=== PATIENT | male | born 1955 | race Caucasian/White ===

== ENCOUNTER 2019-10-24 07:16 | Outpatient (CLI) | payer BC, SELFPAY ==
--- NOTE | ~2019-10-24 | XR_ITS ---
XR chest 2V DATE: 10/24/2019 07:48 INDICATION: Cough TECHNIQUE: PA and lateral views COMPARISON: 05/31/2017 two-view chest FINDINGS: Status post C6-C7 anterior surgical fusion. Normal heart size. Aortic arch calcification. No hilar or mediastinal enlargement. No pulmonary infil trate or consolidation, pleural effusion or pulmonary vascular congestion or pneumothorax is detected . IMPRESSION: No active cardiopulmonary disease Aortic atherosclerosis Reviewed, dictated and finalized at location A.
[2019-10-24 07:54] LABS: Hemoglobin A1C 7.1 % (<5.7)
[2019-10-24 08:38] LABS: Creatinine Urine 43.9 mg/dL
[2019-10-24 08:49] LABS: MALB Creatinine Ratio < 13.7 mg/g (0-30); Microalbumin Urine Random < 6.0 mg/L (0-16.7)
[2019-10-24 09:17] LABS: Alanine Aminotransferase 32 U/L (4-50); Albumin Level 4.6 g/dL (3.5-5.1); Alkaline Phosphatase 60 U/L (38-126); Aspartate Amino Transferase 38 U/L (17-59); Blood Urea Nitrogen 20 mg/dL (9-20); Calcium 9.5 mg/dL (8.4-10.2); Carbon Dioxide 26 mmol/L (22-30); Chloride 100 mmol/L (98-107); Cholesterol 163 mg/dL (0-200); Estimated Glomerular Filt Rate > 60; Glucose 130 mg/dL (75-110); HDL Direct 43 mg/dL; Potassium 4.8 mmol/L (3.4-5.0); Sodium 134 mmol/L (137-145); Triglycerides 267 mg/dL (<150)
[2019-10-24 09:20] LABS: LDL Cholesterol Direct 77 mg/dL
[2019-10-24 09:39] LABS: Prostate Specific Antigen 0.6 ng/mL (< OR = 4.0)
== END 2019-10-24 07:17 | disposition home or self-care (01) ==
PROVIDERS: PCP Family Medicine; Visit Provider Family Medicine
DX: E78.5 Hyperlipidemia, unspecified (principal); R05 Cough; I10 Essential (primary) hypertension; E11.9 Type 2 diabetes mellitus without complications; Z12.5 Encounter for screening for malignant neoplasm of prostate; I70.0 Atherosclerosis of aorta
CPT/HCPCS: 36415; 71046; 80053; 80061; 82043; 83036; 84153

== ENCOUNTER 2022-03-01 09:26 | Outpatient (CLI) | payer MEDICARE, SELFPAY ==
--- NOTE | 2022-03-01 09:39 | ECHO_ITS ---
Patient Info Name: Howard Bryson Age: 66 years : 1955 Gender: Male Ht: 69 in Wt: 210 lbs BSA: 2.18 m2 HR: 70 bpm BP: 168 / 98 mmHg Heart Rhythm: Sinus Rhythm Technical Quality: Fair Exam Date: 03/01/2022 10:02 AM Exam Location: [facility] Patient Status: Outpatient Admit Date: 03/01/2022 Staff Ordering Physician: Julianne Daniels Farm Helper: Ana Luisa Milton RDCS Attending Provider: Julianne Daniels Referring Physician: Frances THOMAS; Exam Type: CA echo doppler color flow Study Info Indications I34.1 - Nonrheumatic mitral (valve) prolapse Complete two-dimensional, color flow and Doppler transthoracic echocardiogram is performed. Summary 1. Complete two-dimensional, color flow and Doppler transthoracic echocardiogram is performed. 2. Left ventricular chamber dimension is normal. 3. Left ventricular systolic function is normal, estimated at 60-65%. 4. The left ventricular diastolic function is grade I diastolic dysfunction. 5. E/e' 16 is elevated. 6. There is mild aortic valve sclerosis. 7. There is trace aortic valve regurgitation. 8. There is trace tricuspid valve regurgitation. 9. No pulmonary hypertension, estimated pulmonary arterial systolic pressure is 31 mmHg. 10. There is trace pulmonic regurgitation. Left Ventricle E/e' 16 is elevated. Left ventricular chamber dimension is normal. Left ventricular systolic function is normal, estimated at 60-65%. The left ventricular diastolic function is grade I diastolic dysfunction. Right Ventricle Right ventricular systolic function is normal and with normal TAPSE 1.7 cm. Right ventricular chamber dimension is normal. Left Atria Left atrial chamber dimension is normal. Right Atria Right atrial chamber dimension is normal. Aortic Valve The aortic valve is trileaflet. There is mild aortic valve sclerosis. There is no aortic valve stenosis. There is trace aortic valve regurgitation. Pulmonic Valve There is trace pulmonic regurgitation. Mitral Valve No mitral valve prolapse. There is no mitral valve stenosis. There is no mitral valve regurgitation. Tricuspid Valve There is trace tricuspid valve regurgitation. No pulmonary hypertension, estimated pulmonary arterial systolic pressure is 31 mmHg. Pericardium/Pleural There is no pericardial effusion. Inferior Vena Cava Normal inferior vena cava with >50% collapse upon inspiration consistent with normal right atrial pressure, 5 mmHg. Aorta The aortic root size at the sinus of Valsalva is normal. Left Ventricular Outflow Tract Name Value Normal LVOT 2D LVOT Diameter 2.0 cm LVOT Doppler LVOT Peak Gradient 5 mmHg LVOT Mean Gradient 2 mmHg LVOT VTI 21 cm LVOT VTI/AV VTI Ratio 0.8 LVOT Stroke Volume 63 ml LVOT CO 4.1 l/min LVOT CI 1.9 l/min/m2 Pulmonic Valve
== END 2022-03-01 09:27 | disposition home or self-care (01) ==
LOC: ANHCARD 09:28
PROVIDERS: PCP Family Medicine; Visit Provider Physician Assistant Medical
DX: I34.1 Nonrheumatic mitral (valve) prolapse (principal)
CPT/HCPCS: 93306

== ENCOUNTER 2022-04-20 06:36 | Outpatient (CLI) | payer MEDICARE, SELFPAY ==
--- NOTE | ~2022-04-20 | MR_ITS ---
EXAMINATION: MR shoulder LT wo con DATE: 04/20/2022 07:42 INDICATION: Left shoulder pain and weakness TECHNIQUE: Magnetic resonance imaging (MRI) of the left shoulder was performed without intravenous co ntrast. Sequences included axial PD-weighted FS FSE, coronal oblique PD-weighted FS FSE, coronal obli que T2-weighted FS FSE, sagittal PD-weighted FS FSE, and sagittal T1-weighted SE. COMPARISON: None. FINDINGS: Coracoacromial arch: The acromion undersurface is flat in morphology (type I). The coracoacromial ligament is normal. Mode rate acromioclavicular osteoarthritis. Rotator cuff: Moderate supraspinatus and infraspinatus tendinopathy. There is a full-thickness tear along the great er tuberosity footplate of the supraspinatus and conjoined portion of the supraspinatus and anterior infraspinatus tendons. The tear which measures 1.6 cm AP and 9 mm medial to lateral the anteriormost aspect of the supraspinatus tendon. The tear extends posteriorly as a articular sided tear involving approximately 50% of the thickness of the more posterior infraspinatus tendon. The teres minor tendon is normal. Mild subscapularis tendinopathy with small intrasubstance split tear extending between th e portion of the tendon attached to the superolateral aspect of the lesser tuberosity and the more goldberg perficial fibers which remain intact and contiguous with the transverse humeral ligament. The tear ex tends approximately 1.5 cm medially from the level of the medial rim of the intertubercular groove. M ild fatty atrophy of the teres minor muscle belly. Biceps tendon, glenoid labrum and glenohumeral cartilage: Mild tendinopathy without tear of the long head biceps tendon which is partially subluxed across the cephalad aspect of the medial rim of the intertubercular groove and into the subscapularis split tear defect. Small superior, anterior to posterior tear of the glenoid labrum (SLAP tear) extending fro m the 12:00 to the 12:30 position of the superior glenoid labrum. Mild partial-thickness cartilage lo ss with smooth chondral surface along the cephalad third of the glenoid. Fluid: Small glenohumeral joint effusion with proportional extension of small amount of fluid both along the long head biceps tendon sheath and through the full-thickness rotator cuff tear into the subacromial /subdeltoid bursa. No loose osteochondral bodies. Bones: Normal marrow signal with no edema, fracture or abnormal marrow replacing process. There is cystic ch ayanna underlying the superior facet of the greater tuberosity likely related to chronic rotator cuff d isease. IMPRESSION: 1. Moderate supraspinatus and infraspinatus tendinopathy with 1.6 cm AP full-thickness tear of a sign ificant portion of the supraspinatus and conjoined portion of the supraspinatus and infraspinatus ten dons and moderate severity partial-thickness articular sided tear extending into the more posterior i nfraspinatus tendon. 2. Mild subscapularis tendinopathy with longitudinal split tear between the posterior side of the ten don and the portion attached to the superolateral aspect of the lesser tuberosity allowing partial goldberg bluxation of the long head biceps tendon into the tear defect 3. Mild tendinopathy without tear of the long head biceps tendon. 4. And glenohumeral osteoarthritis with small SLAP tear at the superior glenoid labrum. 5. Moderate acromioclavicular osteoarthritis. Reviewed, dictated and finalized at location A. IT CARD SPECIALIST IMPRESSION: 1. Moderate supraspinatus and infraspinatus tendinopathy with 1.6 cm AP full-th ickness tear of a significant portion of the supraspinatus and conjoined portio n of the supraspinatus and infraspinatus tendons and moderate severity partial- thickness articular sided tear extending
--- NOTE | ~2022-04-20 | MR_ITS ---
EXAMINATION: MR shoulder RT wo con DATE: 04/20/2022 07:42 INDICATION: Right shoulder pain and weakness post trauma TECHNIQUE: Magnetic resonance imaging (MRI) of the right shoulder was performed without intravenous c ontrast. Sequences included axial PD-weighted FS FSE, coronal oblique PD-weighted FS FSE, coronal obl ique T2-weighted FS FSE, sagittal PD-weighted FS FSE, and sagittal T1-weighted SE. COMPARISON: None. FINDINGS: Coracoacromial arch: The acromion undersurface is flat in morphology (type I). The coracoacromial ligament is normal. Smal l anterior subacromial spur. Moderate acromioclavicular osteoarthritis. Rotator cuff: Moderate supraspinatus and infraspinatus tendinopathy without tear. The teres minor tendon is normal. Mild subscapularis tendinopathy with complete tear of the lesser tuberosity footplate of the subscap ularis tendon. . The torn tendon remains tethered laterally by the bursal side of the tendon which re cliff attached to the lateral rim of the intertubercular groove by the intact transverse humeral liga ment as well as by the cephalad-most fibers which remain attached distally to the anterior margin of the distal supraspinatus tendon. Is mild fatty atrophy of both the subscapularis and teres minor musc le bellies. Biceps tendon, glenoid labrum and glenohumeral cartilage: Mild to moderate tendinopathy without discrete tear of the long head biceps tendon which is subluxed medial to the rim of the intertubercular groove and across the lesser tuberosity tear defect of the s ubscapularis tendon. Circumferential tear of the glenoid labrum with tiny para labral cysts along the anterior-inferior glenoid. Deep chondral ulceration along the posterior aspect of the glenoid with u nderlying subarticular cystic changes. Small region of partial-thickness cartilage loss and deep fiss uring at the anterior to anteroinferior glenoid. Additional mild partial-thickness cartilage loss wit h smooth chondral surface and without degenerative subchondral changes along the inferomedial and pos terior superior aspects of the humeral head. Fluid: Small right glenohumeral joint effusion with proportional extension of a small amount of fluid along the long head biceps tendon sheath. No loose osteochondral bodies. Mild increased fluid signal in the subacromial/subdeltoid bursa consistent with mild bursitis. Bones: Bone alignment is normal. No fracture or pathologic marrow replacing process. IMPRESSION: 1. Mild subscapularis tendinopathy with complete tear of the lesser tuberosity attachment of the tend on which remains tethered laterally by the attachments to the transverse humeral ligament and anterio r margin of the distal supraspinatus tendon. 2. Moderate supraspinatus and infraspinatus tendinopathy without tear. 3. Mild to moderate tendinopathy of the long head biceps tendon which is medially subluxed across the lesser tuberosity tear defect of the subscapularis tendon. 4. Mild glenohumeral osteoarthritis with regions of high-grade chondromalacia along the posterior gle noid and with diffuse tear of the glenoid labrum. 5. Moderate acromioclavicular osteoarthritis and mild underlying subacromial/subdeltoid bursitis. Reviewed, dictated and finalized at location A. MAKER IMPRESSION: 1. Mild subscapularis tendinopathy with complete tear of the lesser tuberosity attachment of the tendon which remains tethered laterally by the attachments to the transverse humeral ligament and anterior margin of the distal supraspinatu s tendon. 2. Moderate supraspinatus and infraspinatus tendinopathy without tear. 3. Mild to moderate tendinopathy of the long head biceps tendon which is medial ly subluxed across the lesser tuberosity tear defect of the subscapularis tendo
== END 2022-04-20 06:37 | disposition home or self-care (01) ==
PROVIDERS: PCP Family Medicine; Visit Provider Orthopaedic Surgery
DX: M25.512 Pain in left shoulder (principal); M25.511 Pain in right shoulder; S43.432A Superior glenoid labrum lesion of left shoulder, initial encounter; M75.121 Complete rotator cuff tear or rupture of right shoulder, not specified as traumatic; M19.011 Primary osteoarthritis, right shoulder
CPT/HCPCS: 73221